=== PATIENT | female | born 1950 | race Caucasian/White ===

== ENCOUNTER 2017-01-20 11:29 | Emergency (ER) | payer BC, OTHER ==
[~2017-01-20] VITALS: Ht 162.6 cm; Wt 61.3 kg
[~2017-01-20 11:29] MED LIST: ALPR-138 PO; DILT180C56 PO; LORT7.5T3 PO; TOPR50TA PO
[2017-01-20 11:42] VITALS: BP 194/100; PULSE 97; RESP 16; TEMP 98.3; O2SAT 100
[2017-01-20] MEDS ORDERED: FENO134C PO (12:23)
[2017-01-20] MEDS ORDERED: MULT-120 PO (12:23)
[2017-01-20] MEDS ORDERED: CARD180C5 PO (12:23)
[2017-01-20] MEDS ORDERED: IBUP400T20 PO (12:23)
[2017-01-20] MEDS ORDERED: TOPR50TA PO (12:23)
[2017-01-20] MEDS ORDERED: ASPI1TAB69 PO (12:23)
[2017-01-20] MEDS ORDERED: CALCTAB19 PO (12:23)
[2017-01-20] MEDS ORDERED: ZYRT10TA PO (12:23)
[2017-01-20] MEDS ORDERED: FLUT50SP EACH NARE (12:23)
[2017-01-20 12:47] LABS: AUTOMATED NEUTROPHIL # 4.2 TH/MM3 (1.8-7.7); BASOPHIL % 0.6 % (0.0-2.0); EOSINOPHIL % 0.3 % (0.0-4.0); HEMATOCRIT 46.5 % (35.0-46.0); LYMPH % 27.8 % (9.0-44.0); LYMPHOCYTE # 1.8 TH/MM3 (1.0-4.8); MEAN CELL VOLUME 78.8 FL (80.0-100.0); MEAN CORPUSCULAR HEMOGLOBIN 24.8 PG (27.0-34.0); MEAN CORPUSCULAR HGB CONC 31.5 % (32.0-36.0); NEUT % 64.3 % (16.0-70.0); PLATELET COUNT 143 TH/MM3 (150-450); RED CELL DISTRIBUTION WIDTH 14.1 % (11.6-17.2); WHITE BLOOD COUNT 6.5 TH/MM3 (4.0-11.0)
[2017-01-20 12:55] LABS: CHLORIDE 108 MEQ/L (98-107); POTASSIUM 3.8 MEQ/L (3.5-5.1); SODIUM (NA) 144 MEQ/L (136-145)
[2017-01-20 12:56] LABS: HEMO FLAGS AUTO DIFF
[2017-01-20 12:59] LABS: ANION GAP 10 MEQ/L (5-15); BICARBONATE 26.3 MEQ/L (21.0-32.0); BLOOD UREA NITROGEN 14 MG/DL (7-18); MAGNESIUM 2.3 MG/DL (1.5-2.5)
--- NOTE | 2017-01-20 12:59 | PD ---
HPI Chief Complaint: Hypertension Time Seen by Provider: 12:01 Travel History International Travel<30 days: No Contact w/Intl Traveler<30days: No Traveled to known affect area: No History of Present Illness HPI This is a 66-year-old female who presents to the emergency department with generalized weakness that's been present for 5 days, constant, moderate severity , associated with some shortness of breath. She says when she started to feel badly she started to take her blood pressure and her pulse. She says her pulses been as low as the 30s and her blood pressure has been erratically high up in the 190s and then normal back and forth. She denies any chest discomfort. She does say that a couple months ago she had a Holter monitor placed by [facility] and was told it was reassuring. PFSH Past Medical History Hx Anticoagulant Therapy: Yes (ASA 81MG DAILY) Asthma: No Blood Disorders: No Heart Rhythm Problems: No Cancer: No Cardiac Catheterization: Yes (02/21) Cardiovascular Problems: Yes (HTN) High Cholesterol: No Chest Pain: No Congestive Heart Failure: No COPD: No Diminished Hearing: No Endocrine: No Gastrointestinal Disorders: Yes (DIVERTICULOSIS. HX OF C-DIFF WITH 3 NEGATIVES) GERD: No Genitourinary: No Hepatitis: No Hiatal Hernia: No Hypertension: Yes Immune Disorder: No Musculoskeletal: Yes (OSTEOARTHRITIS) Neurologic: No Psychiatric: No Reproductive: No Respiratory: Yes Immunizations Current: Yes Myocardial Infarction: No Sleep Apnea: No Ulcer: No ?: Not Tubal Ligation: Yes Past Surgical History Cholecystectomy: No Endocrine Surgery: Yes (TONSILELCTOMY) Gynecologic Surgery: Yes Hysterectomy: Yes Thoracic Surgery: Yes (THORACENTESIS, PLEURAL EFFUSION, LT THORACOTOMY) Tonsillectomy: Yes Other Surgery: Yes (ECHO SHOWED FLUID AROUND HEART, EF 45%) Social History Alcohol Use: Yes (RARE) Tobacco Use: No (NEVER) Substance Use: No Allergies-Medications (Allergen,Severity, Reaction): Coded Allergies: Decadron (Verified Allergy, Severe, TERESA FACE, 01/20/17) Keflex (Verified Allergy, Severe, SOB, 01/20/17) Procaine (Verified Allergy, Severe, PALPATATIONS, 01/20/17) Zithromax (Unverified Allergy, Severe, Anaphylaxis, 01/20/17) Ambien (Verified Adverse Reaction, Severe, GOES CRAZY, 01/20/17) Reported Meds & Prescriptions Reported Meds & Active Scripts Active Reported Ibuprofen 400 Mg Tab 400 Mg PO Q6H PRN Fluticasone Nasal [place] 50 Mcg/Act Naspr 50 Mcg EACH NARE DAILY PRN 50 mcg/spray Multivitamin Women (Multiple Vitamins W/ Minerals) 1 Tab Tab 1 Tab PO DAILY Calcium 600+D 200 (Calcium Carbonate-Vitamin D) 600-200 Mg-Unit Tab 1 Tab PO DAILY Zyrtec Allergy (Cetirizine HCl) 10 Mg Tab 10 Mg PO HS Aspirin 81 Mg Tabdr 81 Mg PO DAILY Fenofibrate Micronized 134 Mg Cap 134 Mg PO DAILY Cardizem CD 24 HR (Diltiazem CD 24 HR) 180 Mg Caper 180 Mg PO DAILY Toprol XL (Metoprolol Succinate) 50 Mg Tab 50 Mg PO DAILY Review of Systems Except as stated in HPI: all other systems reviewed are Neg Physical Exam Narrative GENERAL:Well appearing, no acute distress SKIN: Focused skin assessment warm and dry. HEAD: Atraumatic. Normocephalic. EYES: Pupils equal and round. No injection or drainage. ENT: Moist mucous membranes NECK: Trachea midline. CARDIOVASCULAR: Regular rate and rhythm. No murmur appreciated. RESPIRATORY: Clear to auscultation. Breath sounds equal bilaterally. GASTROINTESTINAL: Abdomen soft, non-tender, nondistended. MUSCULOSKELETAL: No obvious deformities. NEUROLOGICAL: Awake and alert. No obvious cranial nerve deficits. Moving all extremities. PSYCHIATRIC: Appropriate mood and affect; insight and judgment normal. Data Data Last Documented VS Vital Signs Date Time Temp Pulse Resp B/P Pulse Ox O2 Delivery O2 Flow Rate FiO2 01/20/17 13:05 78 16 159/97 98 Nasal Cannula 2 01/20/17 11:42 98.3 Orders Electrocardiogram (01/20/17 ) Complete Blood Count With Diff (01/20/17 12:26) Comprehensive Metabolic Panel (01/20/17 12:26) Magnesium (Mg) (01/20/17 12:26) Troponin I (01/20/17 12:26) Enalaprilat Inj (Vasotec Inj) (01/20/17 13:00) Holter Monitor Recording (01/20/17 ) Labs Laboratory Tests Test 01/20/17 12:00 White Blood Count 6.5 TH/MM3 Red Blood Count 5.90 MIL/MM3 Hemoglobin 14.6 GM/DL Hematocrit 46.5 % Mean Corpuscular Volume 78.8 FL Mean Corpuscular Hemoglobin 24.8 PG Mean Corpuscular Hemoglobin 31.5 % Concent Red Cell Distribution Width 14.1 % Platelet Count 143 TH/MM3 Mean Platelet Volume 9.3 FL Neutrophils (%) (Auto) 64.3 % Lymphocytes (%) (Auto) 27.8 % Monocytes (%) (Auto) 7.0 % Eosinophils (%) (Auto) 0.3 % Basophils (%) (Auto) 0.6 % Neutrophils # (Auto) 4.2 TH/MM3 Lymphocytes # (Auto) 1.8 TH/MM3 Monocytes # (Auto) 0.5 TH/MM3 Eosinophils # (Auto) 0.0 TH/MM3 Basophils # (Auto) 0.0 TH/MM3 CBC Comment AUTO DIFF Sodium Level 144 MEQ/L Potassium Level 3.8 MEQ/L Chloride Level 108 MEQ/L Carbon Dioxide Level 26.3 MEQ/L Anion Gap 10 MEQ/L Blood Urea Nitrogen 14 MG/DL Creatinine 0.74 MG/DL Estimat Glomerular Filtration 78 ML/MIN Rate Random Glucose 92 MG/DL Calcium Level 9.3 MG/DL Magnesium Level 2.3 MG/DL Total Bilirubin 0.3 MG/DL Aspartate Amino Transf 16 U/L (AST/SGOT) Alanine Aminotransferase 20 U/L (ALT/SGPT) Alkaline Phosphatase 85 U/L Troponin I LESS THAN 0.02 NG/ML Total Protein 7.8 GM/DL Albumin 4.1 GM/DL MDM Medical Decision Making Medical Screen Exam Complete: Yes Emergency Medical Condition: Yes Interpretation(s) Afebrile, tachycardic, hypertensive No anemia Electrolytes are reassuring Troponin is normal EKG: Frequent PVCs and ectopic beats Differential Diagnosis Sinus arrhythmia, electrolyte abnormality, heart block, myocardial infarction, dehydration Narrative Course This is a 66-year-old female who presents to the emergency department with weakness for several days. She came in because intermittently her pulse and blood pressure have been very erratic at home. She has very frequent PVCs on the monitor with some couplets but nothing more than 2 beats in a row. She's had no sure bradycardia. I suspect her monitor at home doesn't detect her PVCs and thus is reporting bradycardia. Labs were obtained which were reassuring. I do think patient would benefit from a Holter monitor. A Holter monitor will be placed. I called Dr. Najera's office and explained to them the patient requires a cardiology referral. They said they will call the patient and arrange for this. I also question the patient's beta shirin and calcium channel shirin as she reports that she's had no history of arrhythmia in the past. This may be contributing to some of her ectopy. I told her to hold her diltiazem and start an NISHANT inhibitor. Patient can follow up as an outpatient. If she feels worse she'll return to the emergency department. Diagnosis Primary Impression: Weakness Additional Impression: Ventricular ectopy Referrals: [facility] Patient Instructions: General Instructions Additional Instructions: If you develop severe chest pain, shortness of breath, sweating, lightheadedness , dizziness or difficulty breathing return to the emergency department immediately. Followup with your primary care physician in 2-3 days if your symptoms are not resolved. Med/Other Pt SpecificInfo: Prescription(s) given (stop diltiazem, start lisinopril), Med Stopped Scripts Lisinopril 20 Mg Tab20 Mg PO DAILY #30 TAB Ref 0 Prov:Anna Moore MD 01/20/17 Disposition: 01 DISCHARGE HOME Condition: Stable Anna Moore MD Jan 20, 2017 12:59
[2017-01-20] MEDS ORDERED: ENALAPRILAT 1.25 MG/ML VIAL IV PUSH ONE (13:00)
[2017-01-20 13:02] LABS: ALT (GPT) 20 U/L (10-53); AST (GOT) 16 U/L (15-37); GLOMERULAR FILTRATION RATE 78 ML/MIN (>89)
[2017-01-20 13:03] LABS: TOTAL BILIRUBIN ADULT 0.3 MG/DL (0.2-1.0)
[2017-01-20 13:05] VITALS: BP 159/97; PULSE 78; RESP 16; O2SAT 98
[2017-01-20 13:05] LABS: ALKALINE PHOSPHATASE 85 U/L (45-117)
[2017-01-20 13:57] LABS: PLATELET ESTIMATE SMEAR NORMAL (NORMAL); PLATELET MORPHOLOGY NORMAL (NORMAL); SCAN/DIFF AUTO DIFF CONFIRMED
[2017-01-20] MEDS ORDERED: LISI-515 PO (13:58)
[2017-01-20 14:13] VITALS: BP 116/53; PULSE 66; RESP 16; O2SAT 98
[2017-01-20 15:40] VITALS: BP 125/57; PULSE 69; RESP 16; O2SAT 95
--- NOTE | 2017-01-21 20:01 | EKG ---
Date Performed: 01/20/2017 Time Performed: 12:03:56 PTAGE: 66 years EKG: Sinus rhythm with PVC(s) Leftward axis Poor R wave progression - probable normal variant Non-specific ST/T wave c hanges noted Borderline ECG PREVIOUS TRACING : 06/09/2008 17.27 Compared to the previous tracing, frequent PVCs noted DOCTOR: Jon Azar Interpretating Date/Time 01/21/2017 20:00:11
--- NOTE | 2017-01-22 13:54 | HM ---
Date Performed: 01/20/2017 Time Performed: 15:36:00 HOOKUP DATE: 01/20/17 03:36:00 PM Tue ANALYSIS START TIME: 01/20/2017 3:41:00 PM ANALYSIS END TIME: 01/21/2017 3:20:16 PM PATIENT AGE: 66 PATIENT HEIGHT PATIENT WEIGHT DRUG LIST PATIENT DIAGNOSIS TEST NARRATIVE: The patient's average heart rate was 74 BPM. No episodes of tachycardia wer e noted. No episodes of bradycardia were noted. One pause of 2.0 seconds occurred at 06:43 AM. 15557 ventricular ectopics, which represented 43% of the total beat count, were noted. The highes t ventricular ectopic frequency occurred from 11:00 AM to 12:00 PM Wed. During this time 2195 VE(s) occurred. Ventricular ectop[place] 003[address] isolated beat(s), as 144 couplet(s) and as 22 run(s). Some of the ventricular beats occurred in bigeminal cycles. 52 supraventricular ectopics , which represented < 1% of the total beat count, were noted. The highest supraventricular ectopic f requency occurred from 10:00 AM to 11:00 AM Wed. During this time 12 SVE(s) occurred. No episode s of ST depression (defined as -1.0 mm or more) were noted in channel 1. No episodes of ST depressio n (defined as -1.0 mm or more) were noted in channel 2. No episodes of ST depression (defined as -1. 0 mm or more) were noted in channel 3. TEST INTERPRETATION: The patient was monitored for 23 hours and 39 minutes. There were 44,131 P VCs, 144 ventricular couplets and 22 ventricular runs; the longest of which was 7 beats consistent wi th a run of nonsustained ventricular tachycardia. No symptoms were reported. Conclusions: Abnormal lter monitor with frequent complex ventricular ectopy including several runs of nonsustained ventricu lar tachycardia up to 7 beats. This message was relayed to Dr. Najera's office staff as Dr. Easton humphries was unavailable. The full report will be faxed to the office as well. Signed by : Israel Chavez
== END 2017-01-20 15:52 | disposition home or self-care (01) ==
LOC: PHED 11:29
DX: R53.1 Weakness (principal); I49.3 Ventricular premature depolarization; I47.2 Ventricular tachycardia; I10 Essential (primary) hypertension; Z79.01 Long term (current) use of anticoagulants
CPT/HCPCS: 80053; 83735; 84484; 85025; 93005; 93225; 93226

== ENCOUNTER 2017-04-22 13:02 | Day surgery (SDC) | payer OTHER ==
[~2017-04-22] VITALS: Ht 165.1 cm; Wt 62.5 kg
[~2017-04-22 13:02] MED LIST changes: -ALPR-138 PO; +ASPI1TAB69 PO; +CALCTAB19 PO; +CARD180C5 PO; -DILT180C56 PO; +FENO134C PO; +FLUT50SP EACH NARE; +IBUP400T20 PO; +LISI-515 PO; -LORT7.5T3 PO; +MULT-120 PO; +ZYRT10TA PO
[2017-04-22] MEDS ORDERED: POVIDONE IODINE 5% (ANTISEPSIS KIT) 4 APPLICATIONS EACH NARE PRN (14:15)
[2017-04-22] MEDS ORDERED: METOPROLOL TARTRATE 25 MG TAB PO PRN (14:15)
[2017-04-22] MEDS ORDERED: INSULIN HUMAN REGULAR 1,000 UNITS/10 ML VIAL SQ PRN (14:15)
[2017-04-22] MEDS ORDERED: LACTATED RINGER'S 1000 ML IV PRN (14:15)
[2017-04-22] MEDS ORDERED: CHLORHEXIDINE GLUCONATE 2 % 1 PACK (2 CLOTHS) TOPICAL PRN (14:15)
[2017-04-22] MEDS ORDERED: SODIUM CHLORID 0.9% 500 ML IV PRN (14:15)
[2017-04-22] MEDS ORDERED: ASPI81CH CHEW (14:19)
[2017-04-22] MEDS ORDERED: KETO0.02 EACH EYE (14:19)
[2017-04-22] MEDS ORDERED: COLA100C (14:19)
[2017-04-22] MEDS ORDERED: VERA180C3 PO (14:19)
[2017-04-22] MEDS ORDERED: TYLE325T PO (14:19)
[2017-04-22] MEDS ORDERED: MULT-65 PO (14:19)
[2017-04-22 14:23] VITALS: BP 163/97; PULSE 92; RESP 16; TEMP 98.2; O2SAT 97
[2017-04-22 15:57] LABS: AUTOMATED NEUTROPHIL # 4.3 TH/MM3 (1.8-7.7); BASOPHIL % 0.7 % (0.0-2.0); EOSINOPHIL % 0.3 % (0.0-4.0); HEMATOCRIT 38.9 % (35.0-46.0); HEMO FLAGS DIFF FINAL; LYMPH % 23.5 % (9.0-44.0); LYMPHOCYTE # 1.5 TH/MM3 (1.0-4.8); MEAN CELL VOLUME 79.9 FL (80.0-100.0); MEAN CORPUSCULAR HEMOGLOBIN 26.3 PG (27.0-34.0); MEAN CORPUSCULAR HGB CONC 32.9 % (32.0-36.0); MONO % 9.8 % (0.0-8.0); NEUT % 65.7 % (16.0-70.0); PLATELET COUNT 159 TH/MM3 (150-450); RED BLOOD COUNT 4.87 MIL/MM3 (4.00-5.30); RED CELL DISTRIBUTION WIDTH 14.5 % (11.6-17.2); WHITE BLOOD COUNT 6.5 TH/MM3 (4.0-11.0)
[2017-04-22] MEDS ORDERED: SODIUM CHLORID 0.9% 500 ML INJ 500 ML IV SCH (16:00)
[2017-04-22] MEDS ORDERED: LORazepam 1 MG TAB SL SCH (16:00)
[2017-04-22 16:05] LABS: APTT (PATIENT) 27.5 SEC (24.3-30.1); PROTHROMBIN TIME - PATIENT 10.8 SEC (9.8-11.6)
[2017-04-22 16:25] LABS: BICARBONATE 24.2 MEQ/L (21.0-32.0); POTASSIUM 3.8 MEQ/L (3.5-5.1)
[2017-04-22] MEDS ORDERED: MIDAZOLAM HCL 5 MG/5 ML VIAL ONE (18:59)
[2017-04-22] MEDS ORDERED: HEPARIN-NS/PF INJ 1,000 ML ONE (19:04)
[2017-04-22] MEDS ORDERED: HEPARIN SODIUM - IV 10,000 UNITS/10 ML VIAL ONE (19:45)
[2017-04-22] MEDS ORDERED: HEPARIN-D5W 25,000 U/250 ML 250 ML ONE (19:45)
[2017-04-22] MEDS ORDERED: PROTAMINE SULFATE 50 MG/5 ML VIAL ONE (19:57)
[2017-04-22] MEDS ORDERED: LORazepam 2 MG/ML VIAL IV PRN (20:45)
[2017-04-22] MEDS ORDERED: METOCLOPRAMIDE HCL 10 MG/2 ML VIAL IV PRN (20:45)
[2017-04-22] MEDS ORDERED: ATROPINE SULFATE 1 MG/ML VIAL IV PRN (20:45)
[2017-04-22] MEDS ORDERED: oxyCODONE/ACETAMINOPHEN 5 MG/325 MG TAB PO PRN ×2 (20:45)
[2017-04-22] MEDS ORDERED: BACITRACIN OINT 0.9 GM PKT TOP ONE (20:45)
[2017-04-22] MEDS ORDERED: LIDOCAINE HCL 1% 50 ML VIAL INFIL PRN (20:45)
[2017-04-22] MEDS ORDERED: ONDANSETRON HCL 4 MG/2 ML VIAL IV PRN (20:45)
[2017-04-22] MEDS ORDERED: NON-FORMULARY DRUG (Ketotifen Opth Drops (ZyrTEC Itchy Eye Opth Drops) 1 DROP) EACH EYE PRN (20:45)
[2017-04-22] MEDS ORDERED: SODIUM CHLOR 0.9% 250 ML INJ 250 ML IV PRN (20:45)
[2017-04-22] MEDS ORDERED: MORPHINE SULFATE 4 MG/ML INJ ONE (20:55)
--- NOTE | 2017-04-22 20:58 | CATHPROC ---
[facility] HIS Report Study Information Study Number Admission Scheduled Start Study Start [id number] Apr 22 2017 1:02PM 04/22/2017 Apr 22 2017 5:26PM [place] Service Electrophysiology Study Admit Source Facility Department Other [facility] Physician and Clinical Staff Initial Robbi Osullivan Electronic Publishing Specialist Renay Jefferson,RT(R) TECH2 Other Anesthesia, STEM FRAZER Recorder Kierra Virk,RN Scrub Florentino Alaniz,RT(R) Procedures Performed Procedure Location (Site) Vessel Name ICE CATHETER INSERT RA Atruim RF Ablation LT. ATRIUM LT. [facility]IUM Equipment Time Transit Clerk Description Size Mfg Part Number Used/Scraped BIOSENSE ADORNO CATHETER, THERMOCOOL NON- [id number] 19:31 Used INC. FRANCOIS TC D-F *[id number] BIOSENSE ADORNO 19:33 SET, TUBING COOLFLOW * [id number] Used INC. [id number] *[id number] 18:42 extraTKT INDUSTRIES PACK, CCL CUSTOM * Used *[id number] 18:42 extraTKT PACER CARMICHAEL, LIMB * 2530 *[id number] Used [id number] 19:55 Triond MEDICAL SHEATH, FR4.5 PRELUDE 11CM FR 4.5 Used [id number] 20:00 Triond MEDICAL WIRE, EXCHANGE 260CM 3MMJ 260CM Used *[id number] 20:01 MERIT MEDICAL WIRE, EXCHANGE 260CM 3MMJ 260CM Used *[id number] 19:48 NAMIC TUBING, HIGH PRESSURE 48" 48" Used *[id number] 19:48 NAMIC TUBING, HIGH PRESSURE 48" 48" Used *[id number] 18:42 MEJIA MEDICAL BLANKET,WARM AIR CCL * Used *[id number] 340935 18:42 ST. ISSA MEDICAL CATHETER, JSN, QUAD FR 5 Used *[id number] 868096 18:42 [employer] ISSA MEDICAL CATHETER, JSN, QUAD FR 5 Used *[id number] 667095 18:42 [employer] ISSA MEDICAL CATHETER, JSN, QUAD FR 5 Used *[id number] 797535 18:42 [employer] ISSA MEDICAL CATHETER, JSN, QUAD FR 5 Used *6521419 18:42 ST. ISSA MEDICAL ELECTRODE KIT, FRANCOIS X SURFACE * [id number] Used SHEATH, EPS, FR10 FAST CATH 20:00 ST. ISSA MEDICAL FR 10 TRIO [id number] Used TRIO 19:56 ST. ISSA MEDICAL SHEATH, EPS, FR4 FAST CATH FR 4 [id number] Used 516395 18:42 ST. ISSA MEDICAL SHEATH, EPS, FR5 FAST CATH FR 5 Used *[id number] 092955 18:42 ST. ISSA MEDICAL SHEATH, EPS, FR5 FAST CATH FR 5 Used *[id number] 314144 18:42 ST[employer] ISSA MEDICAL SHEATH, EPS, FR5 FAST CATH FR 5 Used *[id number] 714168 18:42 ST[employer] ISSA MEDICAL SHEATH, EPS, FR6 FAST CATH FR 6 Used *[id number] 998534 18:42 ST[employer] ISSA MEDICAL SHEATH, EPS, FR8 FAST CATH FR 8 Used *[id number] 404053 19:48 ST[employer] ISSA MEDICAL SHEATH, EPS, FR8 FAST CATH FR 8 Used *[id number] 584611 19:56 ST[employer] ISSA MEDICAL SHEATH, EPS, FR8 FAST CATH FR 8 Used *[id number] CATHETER, ACUNAV FR10 ICE [id number] 20:04 RADHA FR 10 Used (RADHA) *[id number] [facility] PAD, ELECTROSURGICAL 18:42 * [id number] *[id number] Used SURGICAL GROUNDING (BLUE) History: Allergies Allergy Reaction Ambien GOES CRAZY Decadron TERESA FACE Keflex SOB procaine PALPATATIONS Zithromax Anaphylaxis dexamethasone TERESA FACE cephalexin SOB azithromycin Anaphylaxis zolpidem GOES CRAZY History: Risk Factors Hypertension Dyslipidemia Yes Yes Labs Hgb (g/dl) Hct (%) RBC (MIL/MM3) WBC (l/cumm) Platelets (thousands) 11.60-17.00 35.00-51.00 4.00-5.90 4.00-11.00 150.00-450.00 12.0 38 4.8 6.5 159 Glucose (mg/dl) BUN (mg/dl) Creatinine (mg/dl) BUN:Creatinine (1:x) 74.00-106.00 7.00-18.00 0.50-1.30 10.00-20.00 88 16 0.8 20 Na (meq/l) K (meq/l) 136.00-145.00 3.50-5.10 141 3.8 INR (PTT:PT) 0.90-1.10 1 Medication Medication Total Dose (Bolus/Oral) Medication Total Dosage/Unit 1% XYLOCAINE 40 mL HEPARIN 8000 units PROTAMINE 20 mg Medications (Bolus/Oral) Medication Time Given Dosage/Unit Administered By Reason 1% XYLOCAINE 04/22/2017 7:21:55 PM 20 mL Robbi Pérez 20 mL 1% XYLOCAINE given in lab by Robbi Pérez in Left Groin via Subcutaneous. 1% XYLOCAINE 04/22/2017 7:24:22 PM 20 mL Robbi Pérez 20 mL 1% XYLOCAINE given in lab by Robbi Pérez in Right Groin via Subcutaneous. HEPARIN 04/22/2017 7:56:52 PM 4000 units Anesthesia, STEM FRAZER As per physicians tejas bal order 4000 units HEPARIN given in lab by Anesthesia, STEM FRAZER via Peripheral IV. Ordered by Robbi Pérez. Reas on: As per physicians verbal order. HEPARIN 04/22/2017 8:08:14 PM 2000 units Anesthesia, STEM FRAZER As per physicians tejas bal order 2000 units HEPARIN given in lab by Anesthesia, STEM FRAZER via Peripheral IV. Ordered by Robbi Pérez. Reas on: As per physicians verbal order. HEPARIN 04/22/2017 8:25:26 PM 2000 units Anesthesia, STEM FRAZER As per physicians tejas bal order 2000 units HEPARIN given in lab by Anesthesia, STEM FRAZER via Peripheral IV. Ordered by Robbi Pérez. Reas on: As per physicians verbal order. PROTAMINE 04/22/2017 8:34:29 PM 20 mg Anesthesia, STEM FRAZER As per physicians verb al order 20 mg PROTAMINE given in lab by Anesthesia, STEM FRAZER via Peripheral IV. Ordered by Robbi Pérez. Reason: As per physicians verbal order. Initial Case Assessment Cardiovascular HR Rhythm NIBP Chest Pain 109 st 163/90 0 Edema Present Skin color Skin None Normal Warm Dry Circulatory - Right Pulses Dorsalis Pedis 1 Scale (0,1,2,3,4,d) Circulatory - Left Pulses Dorsalis Pedis 1 Scale (0,1,2,3,4,d) Circulatory - Lower Extremities Color Lower Right Color Lower Left Normal Normal Neurological State Oriented to time-place- Alert Moves all extremities person Respiration - General Respiration Rate SpO2 (%) (B/min) 18 96 Final Case Assessment Cardiovascular HR Rhythm NIBP Chest Pain 91 sr 118/73 0 Edema Present Skin color Skin None Normal Warm Dry Circulatory - Right Pulses Dorsalis Pedis 1 Scale (0,1,2,3,4,d) Circulatory - Left Pulses Dorsalis Pedis 1 Scale (0,1,2,3,4,d) Circulatory - Lower Extremities Color Lower Right Color Lower Left Normal Normal Neurological State Oriented to time-place- Alert Moves all extremities person Respiration - General Respiration Rate SpO2 (%) (B/min) 20 94 Chronological Log Time Study Chronological Log 18:50:28 Patient arrived via Bed. 18:50:29 Patient Name, D.O.B, / Armband Verified By R.N. 18:50:30 Consent signed by the physician and the patient and verified by the [facility] staff. 18:50:30 Pre-op and post- op instructions given; patient acknowledges understanding of instructions. 18:50:32 Verbal Stimulation=2 Physical Stimulation=2 Airway=2 Respiration=2 TOTAL=8. (0=absent, 1=li mited, 2=present) 18:50:46 Anesthesia at bedside. Assumes care of patient. Lamonte 18:50:47 Presedation assessment performed by [facility] RN. 18:50:48 Patient has been NPO for More than 6Hrs. 18:52:00 Skin Breakdown-per pt, left hand with scabed area, right ring finger w bandaid, "ant bites" to legs. 18:52:02 Patient Warmer Placed on the Table. 18:52:03 Disposable Defibrillator Pads Placed On Patient. 18:52:04 Adan Prominences Protected 18:52:07 A # 20 IV was noted in the Antecubital (left). Grade = 0 0.9ns kvo 18:52:08 A # 20 IV was noted in the Antecubital (right). Grade = 0 0.9ns kvo 18:52:11 History and physical on the chart or being dictated. Assessment: Initial Case, YQ=310 BPM, Rhythm=st, UVHW=722/90 mmhg, Chest Pain=0, Edema=None, Co delmis=Normal, Skin = Warm, Dry Right Pulses: Huber Ped=1 Left Pulses: Huber Ped=1 19:05:50 Lower Right Extremities: Color=Normal Lower Left Extremities: Color=Normal Neurological: State=Alert, Ox3, KANG Respiration: Resp=18 B/min, SpO2=96 % 19:06:51 Table restraints applied according to hospital policy 19:06:56 Bilateral groins prepped with 2% chlorhexidine, and with a 3 min. waiting time. 19:11:00 MD paged 19:13:06 MD responded 19:19:10 MD arrived. Time Out. Correct patient, procedure, procedure equipment, site and side verified with physicia n present. Time 19:21:00 concurred by MD, individual staff and STEM FRAZER. Time Out #2 - Consents verified, patient in correct position, all results are labled and displa yed, safety precautions 19:21:20 taken, antibiotics administered. Time out concurred by MD, individual staff and STEM FRAZER in procedu re 19:21:53 Case Start 19:21:55 20 mL 1% XYLOCAINE given in lab by Robbi Pérez in Left Groin via Subcutaneous. 19:22:04 Vascular access was obtained in the Fem Vein (left). 19:22:08 Vascular access was obtained in the Fem Vein (left). 19:22:08 Vascular access was obtained in the Fem Vein (left). 19:22:46 A SHEATH, EPS, FR5 FAST CATH FR 5 was advanced into the Fem Vein (left) using the Modified Seldinger technique. 19:22:54 A SHEATH, EPS, FR5 FAST CATH FR 5 was advanced into the Fem Vein (left) using the Modified Seldinger technique. 19:22:59 A SHEATH, EPS, FR5 FAST CATH FR 5 was advanced into the Fem Vein (left) using the Modified Seldinger technique. 19:24:22 20 mL 1% XYLOCAINE given in lab by Robbi Pérez in Right Groin via Subcutaneous. 19:24:29 Vascular access was obtained in the Fem Vein (right). 19:24:33 Vascular access was obtained in the Fem Vein (right). 19:24:39 A SHEATH, EPS, FR6 FAST CATH FR 6 was advanced into the Fem Vein (right) using the Modified Seldinger technique. 19:24:48 A SHEATH, EPS, FR8 FAST CATH FR 8 was advanced into the Fem Vein (right) using the Modified Seldinger technique. A CATHETER, JSN, QUAD FR 5 was advanced vis Fem Vein (left) and placed in the RVA. Placement wa s visually 19:25:27 confirmed under fluoroscopy. A CATHETER, JSN, QUAD FR 5 was advanced vis Fem Vein (left) and placed in the HIS. Placement wa s visually 19:25:34 confirmed under fluoroscopy. A CATHETER, JSN, QUAD FR 5 was advanced vis Fem Vein (left) and placed in the HRA. Placement wa s visually 19:26:37 confirmed under fluoroscopy. A CATHETER, JSN, QUAD FR 5 was advanced vis Fem Vein (right) and placed in the CS. Placement wa s visually 19:26:58 confirmed under fluoroscopy. 19:30:10 EPS in progress. A CATHETER, THERMOCOOL NON-FRANCOIS TC D-F was advanced vis Fem Vein (right) and placed in the RVOT. Placement 19:36:21 was visually confirmed under fluoroscopy. 19:50:13 Non-francois TC D F catheter removed. 19:52:16 Vascular access was obtained in the Fem Art (left). A SHEATH, FR4.5 PRELUDE 11CM FR 4.5 was advanced into the Fem Art (left) using the Modified Marge jackie technique. 19:52:29 0.9ns kvo connected 4000 units HEPARIN given in lab by Anesthesia, STEM FRAZER via Peripheral IV. Ordered by Robbi Pérez . Reason: As per 19:56:52 physicians verbal order. 19:57:27 Vascular access was obtained in the Fem Vein (left). A SHEATH, EPS, FR10 FAST CATH TRIO FR 10 TRIO was exchanged in the Fem Vein (left). This was ne cessary in order 19:57:58 for catheter support. cordis 20:04:28 CATHETER, ACUNAV FR10 ICE (RADHA) FR 10 Was Postioned. 20:04:43 Activated Clotting Time Drawn 20:04:47 A PIGTAIL STR INFINITI CATHETER FR 4 was advanced over a wire. asc aorta 20:06:23 Vascular access was obtained in the Fem Art (right). 20:06:28 A SHEATH, EPS, FR8 FAST CATH FR 8 was advanced into the Fem Art (right) using the Modified Seldinger technique. A CATHETER, THERMOCOOL NON-FRANCOIS TC D-F was advanced vis Fem Vein (right) and placed in the LA. P lacement was 20:06:47 visually confirmed under fluoroscopy. 20:07:17 RF Ablation of the LT. ATRIUM with a CATHETER, THERMOCOOL NON-FRANCOIS TC D-F. 20:07:50 ACT (Normal Range 90-180) = 256 2000 units HEPARIN given in lab by Anesthesia, STEM FRAZER via Peripheral IV. Ordered by Robbi Pérez . Reason: As per 20:08:14 physicians verbal order. 20:10:05 Reference ECG taken 20:20:58 Activated Clotting Time Drawn 20:25:13 ACT (Normal Range 90-180) = 197 2000 units HEPARIN given in lab by Anesthesia, STEM FRAZER via Peripheral IV. Ordered by Robbi Pérez . Reason: As per 20:25:26 physicians verbal order. 20:31:19 Pigtail catheter out. Ablation catheter out. 20 mg PROTAMINE given in lab by Anesthesia, STEM FRAZER via Peripheral IV. Ordered by Robbi Pérez. R amee: As per 20:34:29 physicians verbal order. 20:35:37 Catheter(s) removed without difficulty 20:41:54 Activated Clotting Time Drawn 20:46:01 ACT (Normal Range 90-180) = 161 Sheaths removed; pressure applied to access sites. HH to left groin Arterial sheath and DB to r ight groin venous 20:46:30 sheaths 20:47:15 Case End 20:47:48 No case complications noted. 20:47:49 Cine recording checked. 20:55:36 CICU called. Spoke to [place] 20:55:54 Defibrillator and ground pads removed. Skin intact. 20:55:59 Bedside Report will be given. Assessment: Final Case, HR=91 BPM, Rhythm=sr, PMVJ=699/73 mmhg, Chest Pain=0, Edema=None, Color =Normal, Skin = Warm, Dry Right Pulses: Huber Ped=1 Left Pulses: Huber Ped=1 20:56:24 Lower Right Extremities: Color=Normal Lower Left Extremities: Color=Normal Neurological: State=Alert, Ox3, KANG Respiration: Resp=20 B/min, SpO2=94 % 21:15:16 Sterile dressing applied to site 21:17:05 Patient moved to stretcher End Study - Contrast Media Used In Study Contrast Total Opened (mL) Total Used (mL) Total Wasted (mL) Unspecified 0 0 0 End Study - Maximum Contrast Load Max Contrast Load (mL) 378.7 End Study - Radiation Exposure Fluoro Time (minutes) 9.7 End Study - Sheaths Sheaths Pulled By Sheath Hold Time (min) Florentino Alaniz 30 End Study - Patient Disposition Complications Transferred To Interventional Outcome No Telemetry Bed successful
[2017-04-22 21:00] VITALS: BP 119/68; PULSE 82; RESP 17; TEMP 97.5; O2SAT 94
[2017-04-22] MEDS ORDERED: KETOTIFEN EACH EYE PRN (21:00)
[2017-04-22 22:00] VITALS: PULSE 81
[2017-04-22 23:00] VITALS: BP 135/74; PULSE 83; RESP 18; TEMP 98; O2SAT 95
[2017-04-22 23:35] VITALS: PULSE 79
[2017-04-23] VITALS (8 sets, daily range): BP systolic 132–143; BP diastolic 72–82; PULSE 74–96; RESP 16–17; TEMP 97.5–98.7; O2SAT 97–98
[2017-04-23 06:58] LABS: PROTHROMBIN TIME - PATIENT 11.5 SEC (9.8-11.6)
--- NOTE | 2017-04-23 07:40 | PD.CARD.PN ---
Subjective Subjective Remarks Feels okay. Objective Medications Current Medications Medications (Trade) Dose Ordered Sig/Lorna Route Start Time Stop Time Status Last Admin Lactated Ringer's 1,000 ml @ 30 mls/hr Q24H PRN IV 04/22/17 14:15 04/25/17 14:14 Sodium Chloride 500 ml @ 30 mls/hr [id number] PRN IV 04/22/17 14:15 04/25/17 14:14 (Lopressor) 25 mg MANAGER COSTING PRN PO 04/22/17 14:15 04/25/17 14:14 (Betadine 5% Antisepsis Kit) 1 applic MANAGER COSTING PRN EACH NARE 04/22/17 14:15 04/25/17 14:14 (Chlorhexidine 2% Cloth) 3 pack MANAGER COSTING PRN TOPICAL 04/22/17 14:15 04/25/17 14:14 (NovoLIN R INJ) See Protocol Table ... MANAGER COSTING PRN SQ 04/22/17 14:15 04/25/17 14:14 Sodium Chloride 500 ml @ 30 mls/hr [id number] IV 04/22/17 16:00 (Ativan) 1 mg MANAGER COSTING SL 04/22/17 16:00 04/25/17 15:59 (Percocet 5-325 Mg) 1 tab Q4H PRN PO 04/22/17 20:45 (Percocet 5-325 Mg) 2 tab Q4H PRN PO 04/22/17 20:45 (Ativan Inj) 0.5 mg UNSCH PRN IV 04/22/17 20:45 04/23/17 20:44 (Atropine Inj) 0.5 mg UNSCH PRN IV 04/22/17 20:45 Sodium Chloride 250 ml @ 500 mls/hr ONCE PRN IV 04/22/17 20:45 04/23/17 20:44 (Reglan Inj) 10 mg Q4H PRN IV 04/22/17 20:45 (Zofran Inj) 4 mg Q4H PRN IV 04/22/17 20:45 (Xylocaine 1% Inj (50 ml)) 10 ml UNSCH PRN INFIL 04/22/17 20:45 04/23/17 20:44 (Aspirin Chew) 81 mg DAILY CHEW 04/23/17 09:00 (Prinivil) 20 mg DAILY PO 04/23/17 09:00 (Isoptin Sr) 180 mg DAILY PO 04/23/17 09:00 (Tricor) 145 mg DAILY PO 04/23/17 09:00 Patient Own Medication POM: KETOTIFEN(ZADITOR) 1 DROP EACH ... BID PRN EACH EYE 04/22/17 21:00 Future Hold Vital Signs / I&O Vital Signs Date Time Temp Pulse Resp B/P (MAP) Pulse Ox O2 Delivery O2 Flow Rate FiO2 04/23/17 06:41 82 04/23/17 05:41 76 04/23/17 04:36 80 04/23/17 03:15 97.5 79 17 132/72 (92) 98 04/23/17 03:15 83 04/23/17 02:00 77 04/23/17 01:00 74 04/23/17 00:00 78 04/22/17 23:35 79 04/22/17 23:00 98.0 83 18 135/74 (94) 95 04/22/17 22:00 81 04/22/17 21:00 82 04/22/17 21:00 97.5 82 17 119/68 (85) 94 04/22/17 14:23 98.2 92 16 163/97 (119) 97 I/O 04/22/17 04/22/17 04/22/17 04/23/17 04/23/17 04/23/17 07:00 15:00 23:00 07:00 15:00 23:00 Intake Total 240 ml Balance 240 ml Intake Oral 240 ml # Voids 1 Physical Exam GENERAL: Well-nourished, well-developed patient. SKIN: Warm and dry. Groin sites without bruising or bleeding. HEAD: Normocephalic. EYES: No scleral icterus. No injection or drainage. NECK: Supple, trachea midline. No JVD or lymphadenopathy. CARDIOVASCULAR: Regular rate and rhythm without murmurs, gallops, or rubs. RESPIRATORY: Breath sounds equal bilaterally. No accessory muscle use. GASTROINTESTINAL: Abdomen soft, non-tender, nondistended. EXTREMITIES: No cyanosis, or edema. NEUROLOGICAL: Awake, alert, and oriented x 3. Non-focal. Laboratory Laboratory Tests Test 04/22/17 13:55 04/23/17 06:30 White Blood Count 6.5 TH/MM3 Red Blood Count 4.87 MIL/MM3 Hemoglobin 12.8 GM/DL Hematocrit 38.9 % Mean Corpuscular Volume 79.9 FL Mean Corpuscular Hemoglobin 26.3 PG Mean Corpuscular Hemoglobin Concent 32.9 % Red Cell Distribution Width 14.5 % Platelet Count 159 TH/MM3 Mean Platelet Volume 9.7 FL Neutrophils (%) (Auto) 65.7 % Lymphocytes (%) (Auto) 23.5 % Monocytes (%) (Auto) 9.8 % Eosinophils (%) (Auto) 0.3 % Basophils (%) (Auto) 0.7 % Neutrophils # (Auto) 4.3 TH/MM3 Lymphocytes # (Auto) 1.5 TH/MM3 Monocytes # (Auto) 0.6 TH/MM3 Eosinophils # (Auto) 0.0 TH/MM3 Basophils # (Auto) 0.0 TH/MM3 CBC Comment DIFF FINAL Differential Comment Prothrombin Time 10.8 SEC 11.5 SEC Prothromb Time International Ratio 1.0 RATIO 1.0 RATIO Activated Partial Thromboplast Time 27.5 SEC 26.0 SEC Blood Urea Nitrogen 16 MG/DL Creatinine 0.81 MG/DL Random Glucose 88 MG/DL Calcium Level 8.9 MG/DL Sodium Level 141 MEQ/L Potassium Level 3.8 MEQ/L Chloride Level 108 MEQ/L Carbon Dioxide Level 24.2 MEQ/L Anion Gap 9 MEQ/L Estimat Glomerular Filtration Rate 70 ML/MIN Assessment and Plan Problem List: (1) S/P ablation of accessory bypass tract ICD Codes: Z98.890 - Other specified postprocedural states Status: Acute Plan: Stable for discharge home. Follow-up with Dr. Pérez in 3 weeks per my discussion with him. Extensive postoperative education given, all questions answered. (2) SVT (supraventricular tachycardia) ICD Codes: I47.1 - Supraventricular tachycardia Status: Chronic Plan: Sinus rhythm overnight status post SVT ablation. Assessment and Plan Patient, RN, Dr. Préez. Stacie Cole Apr 23, 2017 07:40
[2017-04-23] MEDS ORDERED: FENOFIBRATE 145 MG TAB PO SCH (09:00)
[2017-04-23] MEDS ORDERED: ASPIRIN 81 MG CHEW TAB CHEW SCH (09:00)
[2017-04-23] MEDS ORDERED: FENOFIBRATE MICRONIZED 134 MG PO SCH (09:00)
[2017-04-23] MEDS ORDERED: VERAPAMIL HCL 180 MG SUSTAINED RELEASE TAB PO SCH (09:00)
[2017-04-23] MEDS ORDERED: LISINOPRIL 20 MG TAB PO SCH (09:00)
--- NOTE | 2017-04-23 12:46 | EKG ---
Date Performed: 04/23/2017 Time Performed: 04:00:14 PTAGE: 67 years EKG: Sinus rhythm with PVC(s) Anterolateral ST-T changes are nonspecific Borderline ECG PREVIOUS TRACING : 04/22/2017 14.33 DOCTOR: Kar Jo Interpretating Date/Time 04/23/2017 12:43:46
--- NOTE | 2017-04-23 12:56 | EKG ---
Date Performed: 04/22/2017 Time Performed: 14:33:50 PTAGE: 67 years EKG: Sinus rhythm Left axis deviation Inferior infarct - age undetermined Possible anteroseptal infarct - age undeterm ined Abnormal ECG PREVIOUS TRACING : 01/20/2017 12.03 DOCTOR: Kar Jo Interpretating Date/Time 04/23/2017 12:49:43
--- NOTE | 2017-05-05 12:54 | MA ---
cc: PRADY. Denzel BOUCHER M.D., HANSCY M.D. DATE OF PROCEDURE April 22, 2017 PROCEDURE PERFORMED Electrophysiology study, CS cannulation, 3-D mapping, intracardiac echo, retrograde approach of the aortic valve, radiofrequency ablation of ventricular tachycardia. 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 Multiple PVCs, tachycardia mediated cardiomyopathy who was admitted for electrophysiology study and ablation. The risks, the nature and the benefit of the procedure are clearly stated to her. The risks include pneumothorax, cardiac perforation, stroke, need for open heart surgery and even . The patient understood and agreed to proceed. PROCEDURE After written informed consent was obtained, the patient was brought to the EP Lab where she was prepped and draped in the usual sterile fashion. Conscious sedation was initiated and maintained throughout the procedure by the anesthesiologist. Once sedation was verified, the left inguinal area was anesthetized with 2% Xylocaine. Using modified Seldinger technique, the left femoral vein was cannulated on three occasions. Three guidewires were advanced over the wire. A 6, a 7 and a 10-Italian Hemaquet were advanced. Then the left femoral artery was cannulated on one occasion. One guidewire was advanced over the wire. A 4-Italian Hemaquet was advanced. Then the right femoral vein was cannulated on one occasion. One guidewire was advanced over the wire. A 6-Italian Hemaquet was advanced. Then the right femoral vein was cannulated on another occasion and the guidewire advanced over the wire. An 8-Italian Hemaquet was advanced. Then under fluoroscopic guidance, through the 6 and 7-Italian Hemaquet, three 5-Italian Jessica curved quadripolar electrophysiology catheters were advanced and placed along the His, right ventricular apex and coronary sinus. Basic interval was measured. They were all within normal limits. The patient has a lot of PVCs. Then, through the 8/10-Italian Hemaquet, a Cordis-Green AcuNav intracardiac echo was advanced and placed at the right atrium. Multiple views were obtained. There is no pericardial effusion. Pulmonary vein was seen, the atrial septum visualized. Then, through the 8-Italian Hemaquet in the right femoral vein, a Cordis-Green bidirectional VF irrigated tip 3.5-mm mapping and radiofrequency ablation catheter was advanced. Using [employer] endocardial solution mapping system a three-dimensional configuration of the right ventricular outflow tract was performed. Early activation was to the left. It was late. PVCs were late. At that point the patient received 5000 units of heparin. At this point I decided cannulate the right femoral artery. Using modified Seldinger technique. Over the wire an 8-Italian dilator was advanced. Then the patient received 5000 units of heparin. I tried to keep the ACT around 250. Through the sheath a Cordis Green bidirectional DF mapping and radiofrequency ablation catheter was advanced. of a good portion of the aortic valve was performed. I proceeded with mapping at the area. Early activation was apical septal. Radiofrequency energy was delivered. I did map the whole ventricle but I did realize at the early activation support is still not enough early. Most likely this point is epicardial. After over 1-1/2 hours mapping and no significant early activation for further ablation, I decided to stop the procedure. The intracardiac echo catheter was placed subsequently before that at the right ventricular septum for visualization of the left ventricle. Intracardiac echo showed no pericardial effusion. All catheters were removed. The patient is going to be transferred to the recovery room. That was a very complex case. No incident reported. The patient tolerated the procedure. Blood loss minimal. 1. Electrocardiogram: At baseline the patient was in sinus. Postprocedure electrocardiogram was unchanged. 2. Basic Interval: Base cycle length was 744 milliseconds, AH at 88 and HV at 54 milliseconds. 3. Atrial Pacing Protocol: No tachyarrhythmia was induced. 4. Tachyarrhythmia: PVCs from the left ventricle was mapped and ablated. The ventricular tachycardia and PVCs most likely coming from the epicardial area. CONCLUSION Successful electrophysiology study, mapping. Discontinue ventricular tachycardia ablation because he was in epicardial activation site. At this point my recommendation is to try amiodarone. If that does not work, then I will refer her to a different center for epicardial ablation. The case was extensively discussed with her and her and her daughter. Robbi Pérez MD HS/SSB /11:45 AM /12:35 PM
== END 2017-04-23 09:30 | disposition home or self-care (01) ==
LOC: HDOC 13:02 → HDIC 13:02 → HCIN 21:30 → HDOC 04-23 09:30
PROVIDERS: ATTEND Internal Medicine Interventional Cardiology
DX: I47.2 Ventricular tachycardia (principal); I63.9 Cerebral infarction, unspecified; I49.3 Ventricular premature depolarization; I42.9 Cardiomyopathy, unspecified
CPT/HCPCS: 00537; 80048; 85002; 85025; 85610; 85730; 86850; 86900; 86901; 86920; 93005; 93613; 93623; 93653; 93662; C1730; C1732; C1759; C2630; J1644; J2250; J2270; J2720; J3010

== ENCOUNTER 2017-04-30 09:57 | Emergency (ER) | payer OTHER ==
[~2017-04-30] VITALS: Ht 165.1 cm; Wt 60.0 kg
[~2017-04-30 09:57] MED LIST changes: -ASPI1TAB69 PO; +ASPI81CH CHEW; -CARD180C5 PO; +COLA100C; +KETO0.02 EACH EYE; -MULT-120 PO; +MULT-65 PO; -TOPR50TA PO; +TYLE325T PO; +VERA180C3 PO; -ZYRT10TA PO
[2017-04-30 10:01] VITALS: BP 166/79; PULSE 90; RESP 20; TEMP 98.7; O2SAT 97
--- NOTE | 2017-04-30 10:07 | PD ---
HPI Chief Complaint: General Weakness Time Seen by Provider: 10:04 Travel History International Travel<30 days: No Contact w/Intl Traveler<30days: No Traveled to known affect area: No History of Present Illness HPI 67-year-old female with history of PVCs and tachycardia dysrhythmias, presents to the ER today because she started feeling weak, having palpitations, and checked out her heart rate and it was in the 40s. She reports mild dyspnea. She states that that has gone away. She denies any chest pains or any other symptoms. Modifying Factors: None Associated Signs & Symptoms: General weakness, slow heart rate Risk Factors: None PFSH Past Medical History Hx Anticoagulant Therapy: Yes (ASA 81MG DAILY) Arthritis: Yes (osteoarthritis) Asthma: No Blood Disorders: No Heart Rhythm Problems: No Cancer: No Cardiac Catheterization: Yes (02/21) Cardiovascular Problems: Yes High Cholesterol: Yes Chest Pain: Yes (2001) Congestive Heart Failure: No COPD: No Diminished Hearing: No Endocrine: No Gastrointestinal Disorders: Yes (DIVERTICULOSIS. HX OF C-DIFF WITH 3 NEGATIVES) GERD: No Genitourinary: No Hepatitis: No Hiatal Hernia: No Hypertension: Yes Immune Disorder: No Musculoskeletal: Yes Neurologic: No Psychiatric: No Reproductive: No Respiratory: Yes Immunizations Current: Yes Myocardial Infarction: No Sleep Apnea: No Ulcer: No Tubal Ligation: Yes Past Surgical History Abdominal Surgery: Yes (tubal ligation, hysterectomy) Cholecystectomy: No Endocrine Surgery: Yes (TONSILELCTOMY) Gynecologic Surgery: Yes Hysterectomy: Yes Thoracic Surgery: Yes (thoractomy) Tonsillectomy: Yes Other Surgery: Yes (ECHO SHOWED FLUID AROUND HEART, EF 45%) Social History Alcohol Use: Yes (RARE) Tobacco Use: No (NEVER) Substance Use: No Allergies-Medications (Allergen,Severity, Reaction): Coded Allergies: azithromycin (Unverified Allergy, Severe, Anaphylaxis, 04/22/17) cephalexin (Unverified Allergy, Severe, SOB, 04/22/17) dexamethasone (Unverified Allergy, Severe, TERESA FACE, 04/22/17) procaine (Unverified Allergy, Severe, PALPATATIONS, 04/22/17) zolpidem (Unverified Adverse Reaction, Severe, GOES CRAZY, 04/22/17) Reported Meds & Prescriptions Reported Meds & Active Scripts Active Amiodarone (Amiodarone HCl) 200 Mg Tab 200 Mg PO DAILY Lisinopril 20 Mg Tab 20 Mg PO DAILY Reported Tylenol (Acetaminophen) 325 Mg Tab 500 Mg PO Q6H Multi-Vitamin Daily (Multiple Vitamin) 1 Tab Tab 1 Tab PO DAILY ZyrTEC Itchy Eye Opth Drops (Ketotifen Opth Drops) 0.025% Drops 1 Drop EACH EYE BID PRN Verapamil SR (Verapamil HCl) 180 Mg Cap 180 Mg PO DAILY Colace (Docusate Sodium) 100 Mg Capsule Aspirin 81 Mg Chew 81 Mg CHEW DAILY Ibuprofen 400 Mg Tab 400 Mg PO Q6H PRN Fluticasone Nasal [place] 50 Mcg/Act Naspr 50 Mcg EACH NARE DAILY PRN 50 mcg/spray Calcium 600+D 200 (Calcium Carbonate-Vitamin D) 600-200 Mg-Unit Tab 1 Tab PO DAILY Fenofibrate Micronized 134 Mg Cap 134 Mg PO DAILY Review of Systems Except as stated in HPI: all other systems reviewed are Neg Physical Exam Narrative GENERAL: Well-developed elderly white female patient currently in mild distress. Awake and oriented 3. SKIN: Focused skin assessment warm/dry. HEAD: Atraumatic. Normocephalic. EYES: Pupils equal and round. No scleral icterus. No injection or drainage. ENT: No nasal bleeding or discharge. Mucous membranes pink and moist. NECK: Trachea midline. No JVD. CARDIOVASCULAR: Regular rate and rhythm. No murmur appreciated. Pulses are present and equal bilaterally. RESPIRATORY: No accessory muscle use. Clear to auscultation. Breath sounds equal bilaterally. GASTROINTESTINAL: Abdomen soft, non-tender, nondistended. Hepatic and splenic margins not palpable. MUSCULOSKELETAL: No obvious deformities. No clubbing. No cyanosis. No edema. NEUROLOGICAL: Awake and alert. No obvious cranial nerve deficits. Motor grossly within normal limits. Normal speech. PSYCHIATRIC: Appropriate mood and affect; insight and judgment normal. Data Data Last Documented VS Vital Signs Date Time Temp Pulse Resp B/P (MAP) Pulse Ox O2 Delivery O2 Flow Rate FiO2 04/30/17 11:44 85 18 130/70 (90) 95 Room Air 04/30/17 10:01 98.7 Orders Orders Complete Blood Count With Diff (04/30/17 10:04) Comprehensive Metabolic Panel (04/30/17 10:04) Magnesium (Mg) (04/30/17 10:04) Ckmb (Isoenzyme) Profile (04/30/17 10:04) Troponin I (04/30/17 10:04) Act Partial Throm Time (Ptt) (04/30/17 10:04) Prothrombin Time / Inr (Pt) (04/30/17 10:04) Urinalysis - C+S If Indicated (04/30/17 10:04) Chest, Single Ap (04/30/17 10:04) Blood Glucose (04/30/17 10:04) Ecg Monitoring (04/30/17 10:04) Iv Access Insert/Monitor (04/30/17 10:04) Oximetry (04/30/17 10:04) Sodium Chloride 0.9% Flush (Ns Flush) (04/30/17 10:15) Sodium Chlorid 0.9% 500 Ml Inj (Ns 500 M (04/30/17 10:15) Electrocardiogram (04/30/17 ) Amiodarone (Cordarone) (04/30/17 14:45) Labs Laboratory Tests Test 04/30/17 10:20 White Blood Count 5.7 TH/MM3 Red Blood Count 5.28 MIL/MM3 Hemoglobin 14.1 GM/DL Hematocrit 42.1 % Mean Corpuscular Volume 79.8 FL Mean Corpuscular Hemoglobin 26.7 PG Mean Corpuscular Hemoglobin Concent 33.5 % Red Cell Distribution Width 14.1 % Platelet Count 169 TH/MM3 Mean Platelet Volume 10.2 FL Neutrophils (%) (Auto) 48.7 % Lymphocytes (%) (Auto) 37.6 % Monocytes (%) (Auto) 12.9 % Eosinophils (%) (Auto) 0.4 % Basophils (%) (Auto) 0.4 % Neutrophils # (Auto) 2.8 TH/MM3 Lymphocytes # (Auto) 2.1 TH/MM3 Monocytes # (Auto) 0.7 TH/MM3 Eosinophils # (Auto) 0.0 TH/MM3 Basophils # (Auto) 0.0 TH/MM3 CBC Comment DIFF FINAL Differential Comment Prothrombin Time 10.6 SEC Prothromb Time International Ratio 1.0 RATIO Activated Partial Thromboplast Time 26.0 SEC Urine Color LIGHT-YELLOW Urine Turbidity CLEAR Urine pH 8.0 Urine Specific [place] 1.004 Urine Protein NEG mg/dL Urine Glucose (UA) NEG mg/dL Urine Ketones NEG mg/dL Urine Occult Blood NEG Urine Nitrite NEG Urine Bilirubin NEG Urine Urobilinogen LESS THAN 2.0 MG/DL Urine Leukocyte Esterase NEG Urine RBC LESS THAN 1 /hpf Urine WBC LESS THAN 1 /hpf Urine Squamous Epithelial Cells <1 /hpf Urine Amorphous Sediment RARE Microscopic Urinalysis Comment CULT NOT INDICATED Blood Urea Nitrogen 14 MG/DL Creatinine 0.72 MG/DL Random Glucose 81 MG/DL Total Protein 7.0 GM/DL Albumin 3.6 GM/DL Calcium Level 9.3 MG/DL Magnesium Level 2.3 MG/DL Alkaline Phosphatase 65 U/L Aspartate Amino Transf (AST/SGOT) 21 U/L Alanine Aminotransferase (ALT/SGPT) 17 U/L Total Bilirubin 0.4 MG/DL Sodium Level 135 MEQ/L Potassium Level 4.1 MEQ/L Chloride Level 101 MEQ/L Carbon Dioxide Level 26.0 MEQ/L Anion Gap 8 MEQ/L Estimat Glomerular Filtration Rate 80 ML/MIN Total Creatine Kinase 55 U/L Troponin I LESS THAN 0.02 NG/ML MDM Medical Decision Making Medical Screen Exam Complete: Yes Emergency Medical Condition: Yes Medical Record Reviewed: Yes Interpretation(s) EKG shows sinus tachycardia rate of 100 bpm with no signs of acute ST-T changes. Laboratory Tests Test 04/30/17 10:20 Mean Corpuscular Volume 79.8 FL (80.0-100.0) Mean Corpuscular Hemoglobin 26.7 PG (27.0-34.0) Monocytes (%) (Auto) 12.9 % (0.0-8.0) Sodium Level 135 MEQ/L (136-145) Estimat Glomerular Filtration Rate 80 ML/MIN (>89) Troponin I LESS THAN 0.02 NG/ML Differential Diagnosis Dysrhythmias versus dehydration versus metabolic issues versus ACS Narrative Course EKG does not show significant dysrhythmias. She is mildly tachycardic. Her vital signs were otherwise unremarkable. Her lab work was unremarkable for any significant metabolic issues. Case is discussed with Dr. Pérez and he states that the patient can be released on amiodarone 400 mg daily for 1 week followed by 200 mg daily. Follow-up in his office. Return for any worsening in symptoms as needed. The plan has been discussed with the patient and she states understanding. Diagnosis Primary Impression: Frequent PVCs Referrals: Robbi Pérez MD Scripts Amiodarone (Amiodarone) 200 Mg Tab 200 MG PO DAILY for Regulate Heart Beat, #30 TAB 0 Refills Prov: Loan Giordano MD 04/30/17 Disposition: 01 DISCHARGE HOME Condition: Stable Loan Giordano MD Apr 30, 2017 10:07
[2017-04-30] MEDS ORDERED: SODIUM CHLORID 0.9% 500 ML INJ 500 ML IV ONE (10:15)
[2017-04-30] MEDS ORDERED: SODIUM CHLORIDE 0.9% FLUSH 10 ML FLUSH IVF PRN (10:15)
[2017-04-30 10:30] LABS: AUTOMATED NEUTROPHIL # 2.8 TH/MM3 (1.8-7.7); BASOPHIL % 0.4 % (0.0-2.0); EOSINOPHIL % 0.4 % (0.0-4.0); HEMATOCRIT 42.1 % (35.0-46.0); HEMO FLAGS DIFF FINAL; LYMPH % 37.6 % (9.0-44.0); LYMPHOCYTE # 2.1 TH/MM3 (1.0-4.8); MEAN CELL VOLUME 79.8 FL (80.0-100.0); MEAN CORPUSCULAR HEMOGLOBIN 26.7 PG (27.0-34.0); MEAN CORPUSCULAR HGB CONC 33.5 % (32.0-36.0); MONO % 12.9 % (0.0-8.0); NEUT % 48.7 % (16.0-70.0); PLATELET COUNT 169 TH/MM3 (150-450); RED BLOOD COUNT 5.28 MIL/MM3 (4.00-5.30); RED CELL DISTRIBUTION WIDTH 14.1 % (11.6-17.2); WHITE BLOOD COUNT 5.7 TH/MM3 (4.0-11.0)
[2017-04-30 10:40] LABS: BLOOD, URINE NEG (NEG); COMMENT (UR) CULT NOT INDICATED; CULTURE IF INDICATED CULT NOT INDICATED; GLUCOSE,URINE NEG (NEG); KETONE, URINE NEG (NEG); NITRITE,URINE NEG (NEG); SQUAMOUS EPITHELIAL CELL URINE <1 /hpf (0-5); URINE COLOR LIGHT-YELLOW (YELLW/STRAW)
[2017-04-30 10:41] LABS: PROTHROMBIN TIME - PATIENT 10.6 SEC (9.8-11.6)
[2017-04-30 10:49] LABS: ALT (GPT) 17 U/L (10-53)
[2017-04-30 10:52] LABS: ANION GAP 8 MEQ/L (5-15); AST (GOT) 21 U/L (15-37); BLOOD UREA NITROGEN 14 MG/DL (7-18); CHLORIDE 101 MEQ/L (98-107); GLOMERULAR FILTRATION RATE 80 ML/MIN (>89); MAGNESIUM 2.3 MG/DL (1.5-2.5); SODIUM (NA) 135 MEQ/L (136-145)
[2017-04-30 10:53] LABS: POTASSIUM 4.1 MEQ/L (3.5-5.1)
[2017-04-30 10:57] LABS: ALKALINE PHOSPHATASE 65 U/L (45-117); TOTAL BILIRUBIN ADULT 0.4 MG/DL (0.2-1.0)
--- NOTE | 2017-04-30 11:12 | RADRPT ---
EXAM DATE/TIME: 04/30/2017 10:07 [facility] COMPARISON: No previous studies available for comparison. INDICATIONS : Heart palpitations for 2 days. MEDICAL HISTORY : Atelectasis on left side. SURGICAL HISTORY : Ablation. ENCOUNTER: Initial ACUITY: 2 days PAIN SCORE: 2/10 LOCATION: Left lower chest FINDINGS: There is cardiomegaly. The pulmonary vascular pattern is normal. The lungs are clear. Moderate com pression deformity involving a lower thoracic vertebral body is indeterminate in age. CONCLUSION: 1. Cardiomegaly. 2. No acute focal pulmonary infiltrate or pulmonary vascular congestion. 3. Moderate compression deformity involving a lower thoracic vertebral body of indeterminate age. Will Cedeno MD on April 30, 2017 at 10:19 Board Certified Radiologist. This report was verified electronically.
[2017-04-30 11:14] LABS: CREATINE KINASE 55 U/L (26-192)
[2017-04-30 11:44] VITALS: BP 130/70; PULSE 85; RESP 18; O2SAT 95
--- NOTE | 2017-04-30 14:42 | EKG ---
Date Performed: 04/30/2017 Time Performed: 10:02:21 PTAGE: 67 years EKG: SINUS TACHYCARDIA POSSIBLE LEFT ATRIAL ENLARGEMENT MARKED LEFT AXIS DEVIATION MODERATE ST D EPRESSION Compared to the previous tracing PVCs have resolved, heart rate is faster, ST T changes dmitry ewhat improved anterolaterally ABNORMAL ECG PREVIOUS TRACING : 04/23/2017 04.00 DOCTOR: [employer] Interpretating Date/Time 04/30/2017 14:40:26
[2017-04-30] MEDS ORDERED: AMIO200T PO (14:44)
[2017-04-30] MEDS ORDERED: AMIODARONE 200 MG TAB PO ONE (14:45)
== END 2017-04-30 15:44 | disposition home or self-care (01) ==
LOC: NEPE 09:57
DX: I49.3 Ventricular premature depolarization (principal); R00.0 Tachycardia, unspecified; R53.1 Weakness; R94.31 Abnormal electrocardiogram [ECG] [EKG]; I51.7 Cardiomegaly; M19.90 Unspecified osteoarthritis, unspecified site; E78.00 Pure hypercholesterolemia, unspecified; K57.90 Diverticulosis of intestine, part unspecified, without perforation or abscess without bleeding; I10 Essential (primary) hypertension
CPT/HCPCS: 71010; 80053; 81001; 82550; 83735; 84484; 85025; 85610; 85730; 93005; 96360; 99285; J7040